=== PATIENT | female | born 1935 | race Caucasian/White ===

== ENCOUNTER → 2016-05-17 | Outpatient (CLI) | payer BC ==
[~2016-05-17] MED LIST: FSM70 PO; LEVO100T48 PO; NOVOLOG INSULIN; OXYC-57 PO; PRD/1 PO
[2016-05-17 13:34] LABS: ESTIMATED AVERAGE GLUCOSE 174 mg/dl; HA1C FLAG Normal (Normal)
[2016-05-17 13:36] LABS: BLOOD UREA NITROGEN 8 mg/dl (7-18); BUN/CREATININE RATIO 9.3 (10-20); CALCIUM 9.5 mg/dl (8.5-10.1); CARBON DIOXIDE 26 mmol/L (21-32); CHLORIDE 104 mmol/L (98-107); CHOLESTEROL 228 mg/dl (0-200); GLUCOSE 168 mg/dl (70-99); POTASSIUM 3.7 mmol/L (3.5-5.1); SODIUM 140 mmol/L (136-145); TRIGLYCERIDES 68 mg/dl (0-150); VERY LOW DENSITY LIPOPROT CALC 14 mg/dl
[2016-05-17 13:48] LABS: CHOLESTEROL/HDL RATIO 2.4; HDL CHOLESTEROL 96 mg/dl; LDL CHOLESTEROL CALCULATED 118 mg/dl
== END | disposition home or self-care (01) ==
LOC: C.LABPVFM 08:06
PROVIDERS: ATTEND Family Medicine
DX: E78.5 Hyperlipidemia, unspecified (principal); E06.3 Autoimmune thyroiditis; H61.21 Impacted cerumen, right ear; E10.9 Type 1 diabetes mellitus without complications

== ENCOUNTER → 2016-12-14 | Outpatient (CLI) | payer BC | END | disposition home or self-care (01) | LOC: C.LABPVFM 16:55 | PROVIDERS: ATTEND Nurse Practitioner Adult Health | DX: E10.9 Type 1 diabetes mellitus without complications (principal); Z79.4 Long term (current) use of insulin ==

== ENCOUNTER → 2017-03-08 | Outpatient (CLI) | payer BC ==
[2017-03-08 12:58] LABS: HEMOGLOBIN A1C 7.8 % (4.5-5.6)
== END | disposition home or self-care (01) ==
LOC: C.LABPVFM 08:40
PROVIDERS: ATTEND Nurse Practitioner Adult Health
DX: E10.9 Type 1 diabetes mellitus without complications (principal); M81.0 Age-related osteoporosis without current pathological fracture; Z79.4 Long term (current) use of insulin

== ENCOUNTER → 2017-06-10 | Outpatient (CLI) | payer BC ==
[2017-06-10 10:40] LABS: CREATININE RANDOM URINE 37.2 mg/dl
[2017-06-10 11:11] LABS: ALBUMIN 3.4 gm/dl (3.4-5.0); ALT/SGPT 18 U/L (12-78); AST/SGOT 20 U/L (15-37); BLOOD UREA NITROGEN 9 mg/dl (7-18); CALCIUM 9.4 mg/dl (8.5-10.1); CARBON DIOXIDE 28 mmol/L (21-32); CHOLESTEROL 182 mg/dl (0-200); CREATININE 0.89 mg/dl (0.60-1.20); GLUCOSE 181 mg/dl (70-99); POTASSIUM 3.8 mmol/L (3.5-5.1); SODIUM 138 mmol/L (136-145)
[2017-06-10 11:16] LABS: ALKALINE PHOSPHATASE 74 U/L (45-117); LDL CHOLESTEROL CALCULATED 84 mg/dl; TOTAL PROTEIN 7.2 gm/dl (6.4-8.2)
== END | disposition home or self-care (01) ==
LOC: C.LAB1850 09:20
PROVIDERS: ATTEND Nurse Practitioner Adult Health
DX: E10.9 Type 1 diabetes mellitus without complications (principal); E78.5 Hyperlipidemia, unspecified; E03.9 Hypothyroidism, unspecified; R80.9 Proteinuria, unspecified

== ENCOUNTER 2023-05-03 03:12 | Observation (INO) ==
--- NOTE | 2023-05-03 03:24 | Emergency Department Note ---
Impression & Plan Substernal chest pain ED Provider Note Name: SOHAIL PEDROZA Age: 87 Sex: Female Arrives Via: Ambulance Informant: Patient, ED Provider: Dwight Samano MD Chief Complaint: Chest pain Impression: As per impressions above Medical Decision Makin-year-old female without significant past medical history of cardiac disease arrives for evaluation of substernal chest pressure on and off for the last few hours gradually worsening. On arrival patient EKG is low voltage but no evidence of ischemia. EMS EKG unremarkable as well. Patient given nitro and aspirin. She states this made it worse. She was given small dose of fentanyl and Zofran with vast improvement. At 1 point she did have some epigastric discomfort but on exam no abdominal tenderness palpation and this resolved relatively quickly. She has no evidence of abnormal pulses and she does not have any pulsations on her abdomen exam. Chest x-ray is unremarkable and laboratory workup is benign. Given waxing waning symptoms and patient's age and risk factors I think cardiac rule out would be indicated. Patient does not have any evidence of dissection at this time. She is not short of breath or tachycardic I do not think PE rule out is necessary either. Hospitalist consulted for further management. Of note patient has been on some prednisone 2 mg for quite some time. She may have some gastritis which was irritated by the aspirin but as she has no further abdominal tenderness palpation I would hold off on imaging and defer management to hospitalist team. Triage/Nursing Notes reviewed by Me Differential: Cardiac ischemia, aortic dissection, pulmonary embolism, pneumothorax, pneumonia, pericarditis, myocarditis, esophageal rupture, GERD, cholecystitis, pancreatitis, musculoskeletal, as well as other pathologies. Vital Signs: reviewed and remarkable for HTN Interventions: Sublingual nitroglycerin, aspirin, fentanyl IV, Zofran IV Labs:ED labs Reviewed by me and remarkable for no significant abnormalities Imagin view chest x-ray as per my interpretation no infiltrate or effusion appreciated. EKG:As per my interpretation. Indication chest pain. Low voltage. Normal sinus rhythm at 63 bpm QTc of 440 no ectopy nor ischemia. No previous EKGs for comparison. Cardiac/Tele Monitoring: Cardiac Monitoring: An Order was placed for continuous cardiac monitoring. The monitor shows a rate of 60 with a normal sinus rhythm. Consults:Dr Frank HALL Hospitalist Plan: Disposition:Hospitalization. Condition: Good History of Present Illness: 87-year-old female arrives for evaluation of chest pain. Patient notes she was lying on her couch this evening about 2 hours ago when she started belting chest pain. Chest pain is pressure-like and tight. Location is central and sternal. No radiation to back, shoulders, neck, abdomen. Notes earlier she was having a fast heart rate but that seems of slow down. She does still have some continued chest pressure. Denies any shortness of breath, back pain, syncope, headache, abdominal pain, epigastric discomfort, nausea, vomiting, leg pain, calf swelling, other concerning signs or symptoms. Patient without history of cardiac disease. She does have a recent history of dealing with issues with low back pain for which she has been on oxycodone, Lyrica. She is recently started to decrease her oxycodone and Lyrica and notes that has caused some discomfort. Patient has a history of polymyalgia rheumatica for which she is on chronic low-dose prednisone. Past Medical History:Polymyalgia rheumatica, diabetes, osteoporosis sciatica, hypothyroidism Home Medications:See Below Allergies:Sulfa and Synthroid Vitals:Blood Pressure: 170/76, Pulse 69, RR 18, T 36.8C, O2 98% on RA Physical Exam: GENERAL: Patient is mildly anxious appearing and in minimal distress. RESPIRATORY: No dyspnea. Clear to auscultation and equal bilaterally. CARDIOVASCULAR: Regular rate and rhythm.No murmur appreciated. GASTROINTESTINAL: Abdomen soft, non-tender, no peritonitis. EXTREMITIES: Normal motion all extremities, no cyanosis, no edema. NEUROLOGIC: Alert and oriented. No focal neurologic deficits appreciated SKIN: No rash, no jaundice, no diaphoresis. PSYCH: Appropriate GCS: 15 ED Course: Times/Reassessments: Following aspirin nitro patient with worsening pain and. She was given fentanyl and complete resolution of pain. On subsequent multiple reevaluations no further discomfort. Soft nontender abdomen and patient looks well. She is agreeable to hospitalization. Dwight Samano MD Past Med/Surg History Medical History Osteoporosis HTN (hypertension), benign Dyslipidemia Vitamin D deficiency History of shingles H/O Cherie thyroiditis DM I (diabetes mellitus, type I) Hypothyroid Polymyalgia rheumatica syndrome Surgical History H/O: hysterectomy History of appendectomy Family History Other Diabetes Denies family history of Ovarian cancer Prostate cancer Myocardial infarction Breast cancer Colorectal cancer Social History Smoking Status: Never smoker Second Hand Exposure: No; Do You Dip or Chew Tobacco: No; Hx Alcohol Use: No Hx Substance Use: No Preferred Language: Slovak Communication Ability: Effective Visual Impairment: No Limitations Hearing Ability: Normal marital status: Current Living Situation: Spouse current occupational status: retired How many Children do You have: 3 Feels Safe at Home: Yes Childhood Exposure to Second-Hand Smoke: No Diet: diabetic and low salt caffeine: No Dental Care, Regularly: No Physical Activity Frequency: Does not Exercise Seatbelt Use: always Sunscreen Use: Yes Allergies Allergies Allergy/AdvReac Type Severity Reaction Status Date / Time Sulfa (Sulfonamide Allergy Verified 04/09/23 09:57 Antibiotics) synthroid Allergy Severe Diarrhea Uncoded 04/09/23 09:57 Home Meds Home Medications Medication Instructions Recorded Confirmed cyanocobalamin (vitamin B-12) 1,000 mcg PO DAILY 12/10/18 04/09/23 1,000 mcg tablet lancets 30 gauge (OneTouch Delica 08/16/21 04/09/23 Lancets) prednisone 1 mg tablet 2 mg PO DAILY 03/14/23 04/09/23 Previous Rx's Medication Instructions Recorded BD Ultra-Fine Manisha Pen Needle 32 #100 ea 11/19/19 gauge x 5/32" (pen needle, diabetic) blood sugar diagnostic (Contour #2 Boxes 10/19/21 Next Test Strips) insulin aspart U-100 100 unit/mL 60 unit (0.6 mL) subcut DAILY #60 08/22/22 (3 mL) subcutaneous pen (Novolog mL FlexPen U-100 Insulin aspart) Novolog U-100 Insulin aspart 100 See Rx Instructions continuous 08/23/22 unit/mL subcutaneous solution subcutaneous infusion DAILY #60 mL (insulin aspart U-100) FreeStyle Latosha 2 Sensor (flash #6 ea 11/28/22 glucose sensor) Levoxyl 100 mcg tablet 100 mcg PO DAILY #90 tabs 11/28/22 (levothyroxine) calcitriol 0.25 mcg capsule 0.25 mcg PO BID #180 caps 04/09/23 insulin aspart U-100 100 unit/mL 60 unit (0.6 mL) subcut DAILY #60 04/11/23 (3 mL) subcutaneous pen (Novolog mL FlexPen U-100 Insulin aspart) pregabalin 75 mg capsule 75 mg PO BID #30 caps 04/22/23 oxycodone 5 mg tablet See Rx Instructions .Route 04/29/23 .COMPLEX PRN pain #60 tabs Results & Data (ED) Vital Signs Vital Signs - 24 hr 05/03/23 03:21 05/03/23 03:22 Temperature 36.8 C Temperature Source Oral Pulse Rate 69 69 Pulse Rhythm Regular Pulse Strength Normal Respiratory Rate 18 Respiratory Effort / Characteristics Non-Labored Spontaneous Respiratory Depth Normal Respiratory Pattern Regular Blood Pressure 170/76 H Blood Pressure Mean 107 Blood Pressure Position Sitting Pulse Oximetry 98 Oxygen Delivery Method Room Air Sepsis Recent Fever Within 48 Hours No Sepsis New/Unexplained Change in Mental Status N/A Sepsis Action Taken by Nursing No Action Required Laboratory Data 05/03/23 03:25 05/03/23 04:19 Lab Results 05/03/23 05/03/23 Range/Units 03:25 04:19 WBC 8.79 (4.8-10.8) K/ul RBC 4.81 (4.20-5.40) M/uL Hgb 13.2 (12.0-16.0) g/dl Hct 40.6 (37.0-47.0) % MCV 84.4 (80.0-100.0) fL MCH 27.4 (25.0-34.0) pg MCHC 32.5 (32.0-36.0) g/dL RDW Std Deviation 45.6 (36.4-46.3) fL RDW Coeff of Dawna 15.0 H (11.5-14.5) % Plt Count 390 (130-400) K/uL MPV 10.3 (9.4-12.4) fL Immature Gran % (Auto) 0.3 % Neut % (Auto) 72.1 % Lymph % (Auto) 19.8 % Eagle % (Auto) 7.2 % Eos % (Auto) 0.0 % Baso % (Auto) 0.6 % Neut # (Auto) 6.34 (1.40-6.50) K/uL Lymph # (Auto) 1.74 (1.20-3.40) K/uL Eagle # (Auto) 0.63 H (0.11-0.59) K/uL Eos # (Auto) 0.00 (0.00-0.50) K/uL Baso # (Auto) 0.05 (0.00-0.20) K/uL Immature Gran # (Auto) 0.03 (0.01-0.20) K/uL Sodium 135 L (136-145) mmol/L Potassium TNP 4.0 Chloride 104 (98-107) mmol/L Carbon Dioxide 23 (21-32) mmol/L Anion Gap 8 (3-11) BUN 9 (6-23) mg/dl Creatinine 0.71 (0.6-1.2) mg/dl Est Cr Clr Drug Dosing 56.1 ml/min Est GFR ( Amer) 89.4 ml/min Est GFR (Non-Af Amer) 77.1 ml/min BUN/Creatinine Ratio 12.7 (10-20) Glucose 232 H (70-99(Fasting)) mg/dl Calcium 9.6 (8.6-10.3) mg/dl Total Bilirubin 0.9 (0.2-1.0) mg/dl Direct Bilirubin TNP AST 19 (13-39) U/L ALT 8 (7-52) U/L Alkaline Phosphatase 59 (34-104) U/L Troponin I High Sens 6.4 (0-14) pg/ml Total Protein 6.4 (6.0-8.3) gm/dl Albumin 3.7 (3.4-5.0) gm/dl Lipase 9 L (11-82) U/L Administered Medications Discontinued Medications Aspirin (Aspirin 81 Mg Chew) 324 mg PO NOW STA Stop: 05/03/23 03:21 Last Admin: 05/03/23 03:26 Dose: 324 mg Documented By: ZACH Fentanyl Citrate (Fentanyl Citrate Pf 100 Mcg/2 Ml Vial) 25 mcg IV NOW STA Stop: 05/03/23 04:04 Last Admin: 05/03/23 04:24 Dose: 25 mcg Documented By: ZACH Nitroglycerin (Nitroglycerin Sl 0.4 Mg/Tab Tab) 0.4 mg SL NOW STA Stop: 05/03/23 03:21 Last Admin: 05/03/23 03:26 Dose: 0.4 mg Documented By: ZACH Ondansetron HCl (Ondansetron Inj 2 Mg/Ml 2 Ml Vial) 4 mg IV NOW STA Stop: 05/03/23 04:04 Last Admin: 05/03/23 04:24 Dose: 4 mg Documented By: ZACH Discharge Plan Visit Data Chief Complaint: Chest Pain ED Provider: Dwight Samano Discharge Problem: Substernal chest pain Forms Stand Alone Forms: [facility] [employer] Prescriptions Prescriptions: No Action (DME) pen needle, diabetic [BD Ultra-Fine Manisha Pen Needle] 32 gauge x 5/32" needle See Rx Instructions .ROUTE .MEDSUPPLY Qty: 100 3RF Rx Instructions: Use in case of pump failure (DME) Contour Next Test Strips Strip See Rx Instructions .ROUTE .MEDSUPPLY Qty: 2 3RF Dose Instruction: As directed Rx Instructions: Test blood sugars 1 times a day insulin aspart U-100 [Novolog FlexPen U-100 Insulin] 100 unit/mL (3 mL) insulin pen 60 unit SQ DAILY Qty: 60 3RF Rx Instructions: in case of pump failure insulin aspart U-100 [Novolog U-100 Insulin aspart] 100 unit/mL solution See Rx Instructions continuous subcutaneous infusion DAILY Qty: 60 3RF Rx Instructions: 60 units continuous subcutaneous infusion daily; (DME) FreeStyle Latosha 2 Sensor Kit See Rx Instructions .Route Qty: 6 3RF Rx Instructions: Change sensor every 14 days levothyroxine [Levoxyl] 100 mcg tablet 100 mcg PO DAILY Qty: 90 3RF Rx Instructions: Levoxyl ONLY - do not substitute any other brand. calcitriol 0.25 mcg capsule 0.25 mcg PO BID Qty: 180 3RF insulin aspart U-100 [Novolog FlexPen U-100 Insulin] 100 unit/mL (3 mL) insulin pen 60 unit subcut DAILY MDD 60 units Qty: 60 3RF pregabalin 75 mg capsule 75 mg PO BID Qty: 30 0RF oxycodone 5 mg tablet See Rx Instructions .ROUTE .COMPLEX PRN (Reason: pain) Qty: 60 0RF Rx Instructions: 1/2 to 1 tablet every 8 hours as needed for pain. Monitor for drowsiness. (DME) lancets [Capriuch Deldano Lancets] 30 gauge misc See Rx Instructions .ROUTE .MEDSUPPLY Rx Instructions: Test 1 times daily prednisone 1 mg tablet 2 mg PO DAILY cyanocobalamin (vitamin B-12) 1,000 mcg tablet 1,000 mcg PO DAILY Referrals Referrals: Eli Prasad MD [Primary Care Provider] -
[2023-05-03] MEDS: NITROGLYCERIN SL 0.4 MG/TAB TAB SL STA (03:26)
[2023-05-03] MEDS: ASPIRIN 81 MG CHEW PO STA (03:26)
[2023-05-03 03:44] LABS: Basophils # (auto) 0.05 K/uL (0.00-0.20); Basophils % (auto) 0.6 %; Hematocrit (blood only) 40.6 % (37.0-47.0); Hemoglobin 13.2 g/dl (12.0-16.0); Immature Granulocytes # (auto) 0.03 K/uL (0.01-0.20); Immature Granulocytes % (auto) 0.3 %; Lymphocytes # (auto) 1.74 K/uL (1.20-3.40); Lymphocytes % (auto) 19.8 %; Mean Corpuscular Hemoglobin 27.4 pg (25.0-34.0); Mean Corpuscular Hgb Conc 32.5 g/dL (32.0-36.0); Mean Corpuscular Volume 84.4 fL (80.0-100.0); Mean Platelet Volume 10.3 fL (9.4-12.4); Monocytes # (auto) 0.63 K/uL (0.11-0.59); Monocytes % (auto) 7.2 %; Neutrophils # (auto) 6.34 K/uL (1.40-6.50); Neutrophils % (auto) 72.1 %; Platelet Count 390 K/uL (130-400); RDW Standard Deviation 45.6 fL (36.4-46.3); Red Blood Count 4.81 M/uL (4.20-5.40); White Blood Count 8.79 K/ul (4.8-10.8)
[2023-05-03 04:13] LABS: Anion Gap 8 (3-11); BUN Creatinine Ratio 12.7 (10-20); Blood Urea Nitrogen 9 mg/dl (6-23); Calcium 9.6 mg/dl (8.6-10.3); Carbon Dioxide 23 mmol/L (21-32); Chloride 104 mmol/L (98-107); Creatinine Clr Calc Pharmacy 56.1 ml/min; Est GFR (African American) 89.4 ml/min; Est GFR (Non-African American) 77.1 ml/min; Glucose 232 mg/dl (70-99(Fasting)); Sodium 135 mmol/L (136-145)
[2023-05-03] MEDS: ONDANSETRON INJ 2 MG/ML 2 ML VIAL IV STA (04:24)
[2023-05-03] MEDS: fentaNYL citrate PF 100 MCG/2 ML VIAL IV STA (04:24)
[2023-05-03 04:26] LABS: Troponin I High Sensitivity 6.4 pg/ml (0-14)
[2023-05-03 05:01] LABS: Alanine Aminotransferase 8 U/L (7-52); Albumin Level 3.7 gm/dl (3.4-5.0); Alkaline Phosphatase 59 U/L (34-104); Aspartate Aminotransferase 19 U/L (13-39); Bilirubin,Total 0.9 mg/dl (0.2-1.0); Lipase 9 U/L (11-82); Total Protein 6.4 gm/dl (6.0-8.3)
--- NOTE | 2023-05-03 05:39 | History & Physical Report ---
Date of Service May 03, 2023 Assessment & Plan (1) Substernal chest pain: Plan: -Patient with substernal chest pain that started approximately 3 to 4 hours prior to coming to the hospital. -Troponin negative, will repeat troponin at time of admission. -EKG without any acute changes. -Will order lipid panel. -Ordered TTE. -N.p.o. for now, if troponin negative can start diet. (2) Epigastric pain: Plan: -Lipase negative. Symptoms got slightly better with Zofran and fentanyl. -Will give GI cocktail at time of admission. -Will put on MiraLAX as needed. (3) Low back pain with sciatica: Plan: -Patient with known low back pain with sciatica on gabapentin. -Was recently in the ED and supplied oxycodone. -Will stop oxycodone as she has been having constipation since starting which most likely contributed to her constipation and epigastric pain. (4) Diabetes: Plan: -Patient is a type I diabetic and is currently wearing a pump. -Will add on hemoglobin A1c. (5) HTN (hypertension), benign: Plan: -Continue on home medications. (6) Polymyalgia rheumatica syndrome: Plan: -Continue on 1 mg steroids daily. (7) Hypothyroid: Plan: -Continue home Synthroid. History of Present Illness Chief Complaint: Chest pain rule out Primary Care Provider: Eli Prasad MD Patient is a 87-year-old female who presents to the hospital with chest pain, epigastric pain, and constipation. Patient started having chest pain overnight. Patient was having chest pain for 3 to 4 hours prior to coming into the hospital. She was not sleeping at that time but was resting. States that it feels like someone is sitting on her chest. She has been also having epigastric pain starting since yesterday. She also states that she has been having constipation and has not had a bowel movement for 2 days. She was recently started on oxycodone for back pain after discharge from the ED on 04/02. Patient states that she is also having numbness and tingling in her legs but this is nothing new and she follows with orthopedics. She is currently waiting to have an MRI. Of note patient is also a type I diabetic and has an insulin pump on. She denies any fevers, chills, or cough. In the ED: Troponin negative, lipase negative, CBC and CMP benign. Nitro was given which did not help. Symptoms improved slightly with Zofran and fentanyl though they came back. Allergies Allergy/AdvReac Type Severity Reaction Status Date / Time Sulfa (Sulfonamide Allergy Unknown Verified 05/03/23 10:47 Antibiotics) levothyroxine sodium AdvReac Severe Diarrhea Verified 05/03/23 10:47 [From Synthroid] (worst ever) but takes Levoxyl Home Medications Medication Instructions Recorded Confirmed Type cyanocobalamin (vitamin B-12) 1,000 mcg PO DAILY 12/10/18 05/03/23 History 1,000 mcg tablet BD Ultra-Fine Manisha Pen Needle 32 #100 ea 11/19/19 04/09/23 Rx gauge x 5/32" (pen needle, diabetic) lancets 30 gauge (OneTouch Delica 08/16/21 04/09/23 History Lancets) blood sugar diagnostic (Contour #2 Boxes 10/19/21 04/09/23 Rx Next Test Strips) insulin aspart U-100 100 unit/mL 60 unit (0.6 mL) subcut DAILY #60 08/22/22 05/03/23 Rx (3 mL) subcutaneous pen (Novolog mL FlexPen U-100 Insulin aspart) Novolog U-100 Insulin aspart 100 See Rx Instructions continuous 08/23/22 05/03/23 Rx unit/mL subcutaneous solution subcutaneous infusion DAILY #60 mL (insulin aspart U-100) FreeStyle Latosha 2 Sensor (flash #6 ea 11/28/22 04/09/23 Rx glucose sensor) Levoxyl 100 mcg tablet 100 mcg PO DAILY #90 tabs 11/28/22 05/03/23 Rx (levothyroxine) prednisone 1 mg tablet 1 mg PO DAILY 03/14/23 05/03/23 History calcitriol 0.25 mcg capsule 0.25 mcg PO BID #180 caps 04/09/23 05/03/23 Rx pregabalin 75 mg capsule 75 mg PO BID #30 caps 04/22/23 05/03/23 Rx oxycodone 5 mg tablet 2.5 - 5 mg PO Q8H PRN Pain 05/03/23 05/03/23 History Past Med/Surg History Medical History Osteoporosis HTN (hypertension), benign Dyslipidemia Vitamin D deficiency History of shingles H/O Cherie thyroiditis DM I (diabetes mellitus, type I) Hypothyroid Polymyalgia rheumatica syndrome Surgical History H/O: hysterectomy History of appendectomy Family History Other Diabetes Denies family history of Ovarian cancer Prostate cancer Myocardial infarction Breast cancer Colorectal cancer Social History Smoking Status: Never smoker Second Hand Exposure: No; Do You Dip or Chew Tobacco: No; Hx Alcohol Use: No Hx Substance Use: No Preferred Language: Thai Communication Ability: Effective Visual Impairment: No Limitations Hearing Ability: Normal [employer] Technician Required: No Beliefs That Will Affect Care: None marital status: Current Living Situation: Spouse current occupational status: retired How many Children do You have: 3 Feels Safe at Home: Yes Safety Concerns: Feels Safe At This Time Childhood Exposure to Second-Hand Smoke: No Diet: diabetic and low salt caffeine: No Dental Care, Regularly: No Physical Activity Frequency: Does not Exercise Seatbelt Use: always Sunscreen Use: Yes Assistive Devices: Walker Review of Systems Review of Systems: All systems reviewed & are unremarkable except as noted in Subjective Physical Exam Physical Exam: Constitutional: well-appearing, no acute distress HEENT: NCAT, no conjunctival injection CV: regular rhythm, no murmur appreciated, extremities well-perfused, no LE edema Resp: CTABL, no wheezes/rales/rhonchi appreciated, no increased work of breathing GI: soft, nondistended, epigastric tenderness, BS normoactive MSK: Slight chest wall tenderness Skin: warm, dry, no rash appreciated Neuro: alert, oriented, no focal neurologic deficit appreciated Results & Data Results & Data Vital Signs (Past 12 Hours) Vital Signs Temp Pulse Resp BP Pulse Ox O2 Del Method 05/03/23 03:22 69 05/03/23 03:21 36.8 C 69 18 170/76 H 98 Room Air Supervising Physician Co-Signing Physician Notes Attending addendum: I have physically seen this patient, have supervised the medical residents activities, and agree with the H&P unless as otherwise noted. Assessment and Plan: Substernal chest pain/hypertension- The patient will be admitted to telemetry for serial cardiac enzymes, serial EKG's, cardiac rhythm monitoring and a 2-D echocardiogram with Dopplers. Initial troponin 6.4 with follow-up pending 6 From the ED received the following: Aspirin 324 mg, nitroglycerin 0.4 mg, Zofran 4 mg IV and fentanyl 25 mcg IV Consult cardiology Epigastric pain- Trial GI cocktail Stool retention noted MiraLAX 17 g p.o. daily as needed Pantoprazole 40 mg p.o. daily Diabetes mellitus- Presently using insulin pump Consult pharmacy glycemic management Polymyalgia rheumatica- Continue current dosing of prednisone, would have low threshold for stress dosing Resident Activity Tracking Resident Involvement: Resident Care Provided Care Provided: Adult Hospital Medicine (4) Diabetes Diabetes mellitus complication status: without complication Diabetes mellitus type: type 1 Qualified Code(s): E10.9 - Type 1 diabetes mellitus without complications (7) Hypothyroid Hypothyroidism type: acquired Qualified Code(s): E03.9 - Hypothyroidism, unspecified
[2023-05-03] MEDS: ALUMINUM/MAGNESIUM SUSP 30 ML UDC PO STA (06:13)
[2023-05-03] MEDS ORDERED: NITROGLYCERIN SL 0.4 MG/TAB TAB SL PRN (06:23)
[2023-05-03] MEDS ORDERED: ONDANSETRON INJ 2 MG/ML 2 ML VIAL IV PRN (06:23)
[2023-05-03 06:29] LABS: Troponin I High Sensitivity 7.7 pg/ml (0-14)
[2023-05-03 06:53] LABS: Chol HDL Ratio 2.5 (0-5)
--- NOTE | 2023-05-03 06:54 | XRay Report ---
XR chest 1V portable CLINICAL HISTORY: Atypical chest pain. COMPARISON STUDY: No previous studies for comparison. FINDINGS: Lung volumes are normal. There is no pneumothorax or pleural effusion. Patchy bibasilar opa cities are present. No evidence for pulmonary edema. Patient is mildly rotated. Cardiomediastinal radha houette is unremarkable. IMPRESSION: Patchy bibasilar opacities which may reflect pneumonia. Radiographic follow-up to ensure resolution is recommended. Findings will be called/faxed to the ordering provider at time of dictati on. ACT 112: Negative or not required by law. Electronically signed by: Manuel Joel M.D. 05/03/2023 6:52 AM
[2023-05-03 07:13] LABS: Estimated Average Glucose 169 mg/dl; Hemoglobin A1C 7.5 % (4.5-5.6)
[2023-05-03] MEDS: LEVOTHYROXINE SODIUM 100 MCG TABLET PO SCH (07:23)
--- NOTE | 2023-05-03 08:00 | Electrocardiogram Report ---
Test Reason : Blood Pressure : / mmHG Vent. Rate : 063 BPM Atrial Rate : 063 BPM P-R Int : 174 ms QRS Dur : 082 ms QT Int : 430 ms P-R-T Axes : 036 -09 048 degrees QTc Int : 440 ms Normal sinus rhythm Low voltage QRS Abnormal ECG No previous ECGs available Confirmed by Hola Montano ([id number]) on 05/03/2023 8:00:34 AM Referred By: REFERRED SELF Confirmed By:Felix Montano
[2023-05-03] MEDS: predniSONE 1 MG TAB PO SCH (08:39)
[2023-05-03] MEDS: MAGNESIUM HYDROXIDE SUSP 30 ML UDC PO PRN (08:39)
[2023-05-03] MEDS: PREGABALIN 75 MG CAP PO SCH (08:41)
[2023-05-03 09:51] LABS: Adenovirus PCR Not Detected (NotDetected); Bordetella parapertussis PCR Not Detected (NotDetected); Bordetella pertussis PCR Not Detected (NotDetected); Chlamydia pneumoniae PCR Not Detected (NotDetected); Coronavirus 229E PCR Not Detected (NotDetected); Coronavirus CoV-2 (COVID19)PCR Not Detected (NotDetected); Coronavirus HKU1 PCR Not Detected (NotDetected); Coronavirus NL63 PCR Not Detected (NotDetected); Coronavirus OC43PCR Not Detected (NotDetected); Human Metapneumovirus PCR Not Detected (NotDetected); Influenza A PCR Not Detected (NotDetected); Influenza B PCR Not Detected (NotDetected); Mycoplasma pneumoniae PCR Not Detected (NotDetected); Parainfluenza Virus 1 PCR Not Detected (NotDetected); Parainfluenza Virus 2 PCR Not Detected (NotDetected); Parainfluenza Virus 3 PCR Not Detected (NotDetected); Parainfluenza Virus 4 PCR Not Detected (NotDetected); Respiratory Syncytial VirusPCR Not Detected (NotDetected); Rhinovirus/Enterovirus PCR Not Detected (NotDetected)
[2023-05-03] MEDS ORDERED: PHARMACY GLYCEMIC MGMT CONSULT PRN (11:43)
[2023-05-03] MEDS ORDERED: INSULIN ASPART 100 UNITS/ML VIAL SC PRN (12:15)
[2023-05-03] MEDS ORDERED: GLUCAGON FOR INJ 1 MG VIAL IM PRN (12:15)
[2023-05-03] MEDS ORDERED: CARBOHYDRATES FOR HYPOGLYCEMIA PO PRN (12:15)
[2023-05-03] MEDS ORDERED: GLUCOSE 10 TAB/TUBE PO PRN (12:15)
[2023-05-03] MEDS ORDERED: GLUCOSE 40% GEL 15 GM TUBE PO PRN (12:15)
[2023-05-03] MEDS ORDERED: Continuous Glucose Monitor SCH (12:15)
[2023-05-03] MEDS ORDERED: DEXTROSE 50% 50 ML SYRINGE IV PRN (12:15)
[2023-05-03] MEDS: POLYETHYLENE (MIRALAX) 17 GM PACK PO PRN (12:21)
[2023-05-03] MEDS: INSULIN, Rapid-Acting PUMP SCH (13:48)
--- NOTE | 2023-05-03 14:14 | XCELERA ---
[id number]
--- NOTE | 2023-05-03 20:53 | Billing Data ---
Date of Service May 03, 2023 Coding Level of Care Code 79887 INT INP/OBS CARE
[2023-05-04 07:49] LABS: Basophils # (auto) 0.06 K/uL (0.00-0.20); Basophils % (auto) 0.7 %; Hemoglobin 12.6 g/dl (12.0-16.0); Immature Granulocytes # (auto) 0.02 K/uL (0.01-0.20); Immature Granulocytes % (auto) 0.2 %; Lymphocytes # (auto) 2.43 K/uL (1.20-3.40); Lymphocytes % (auto) 27.3 %; Mean Corpuscular Hemoglobin 27.1 pg (25.0-34.0); Mean Corpuscular Hgb Conc 32.3 g/dL (32.0-36.0); Mean Corpuscular Volume 83.9 fL (80.0-100.0); Mean Platelet Volume 10.6 fL (9.4-12.4); Monocytes # (auto) 0.83 K/uL (0.11-0.59); Monocytes % (auto) 9.3 %; Neutrophils # (auto) 5.56 K/uL (1.40-6.50); Neutrophils % (auto) 62.5 %; Platelet Count 361 K/uL (130-400); RDW Coefficient of Variation 15.3 % (11.5-14.5); RDW Standard Deviation 46.6 fL (36.4-46.3); Red Blood Count 4.65 M/uL (4.20-5.40)
[2023-05-04 08:21] LABS: Troponin I High Sensitivity 16.4 pg/ml (0-14)
[2023-05-04 08:32] LABS: Albumin Globulin Ratio 1.5 (0.9-2); Albumin Level 3.8 gm/dl (3.4-5.0); BUN Creatinine Ratio 16.2 (10-20); Bilirubin,Total 1.1 mg/dl (0.2-1.0); C Reactive Protein 1.99 mg/dl (0-0.5); Calcium 9.3 mg/dl (8.6-10.3); Creatinine Clr Calc Pharmacy 52.5 ml/min; Est GFR (Non-African American) 73.4 ml/min; Globulin 2.6 gm/dl (2.5-4.0); Potassium 3.9 mmol/L (3.5-5.1); Total Protein 6.4 gm/dl (6.0-8.3)
[2023-05-04] MEDS: POLYETHYLENE (MIRALAX) 17 GM PACK PO SCH (10:25)
[2023-05-04] MEDS: DOCUSATE SODIUM/SENNA 50/8.6MG TAB PO SCH (10:26)
--- NOTE | 2023-05-04 10:28 | XRay Report ---
KUB CLINICAL HISTORY: Constipation. FINDINGS: 2 AP, portable, supine abdominal radiographs are correlated with lumbar spine radiographs d ated 04/17/2023. There is a nonobstructed abdominal bowel gas pattern. There is mild colonic fecal rete ntion. No evidence of intraperitoneal free air is seen on these supine images. There are no abnormal abdominal calcifications. The skeletal structures are osteopenic and appear intact. There is moderate to advanced lumbosacral spondylosis as well as mild scoliosis. IMPRESSION: No acute abnormality is identified. Electronically signed by: Henok Harding M.D. 05/04/2023 10:26 AM
--- NOTE | 2023-05-07 10:27 | Discharge Summary ---
Date of Service May 04, 2023 Admission HPI Per Admitting Provider Patient is a 87-year-old female who presents to the hospital with chest pain, epigastric pain, and constipation. Patient started having chest pain overnight. Patient was having chest pain for 3 to 4 hours prior to coming into the hospital. She was not sleeping at that time but was resting. States that it feels like someone is sitting on her chest. She has been also having epigastric pain starting since yesterday. She also states that she has been having constipation and has not had a bowel movement for 2 days. She was recently started on oxycodone for back pain after discharge from the ED on 04/02. Patient states that she is also having numbness and tingling in her legs but this is nothing new and she follows with orthopedics. She is currently waiting to have an MRI. Of note patient is also a type I diabetic and has an insulin pump on. She denies any fevers, chills, or cough. In the ED: Troponin negative, lipase negative, CBC and CMP benign. Nitro was given which did not help. Symptoms improved slightly with Zofran and fentanyl though they came back. Principal Diagnosis chest pain Discharge Exam Constitutional: well-appearing, no acute distress HEENT: NCAT, no conjunctival injection CV: regular rhythm, no murmur appreciated, extremities well-perfused, no LE edema Resp: CTABL, no wheezes/rales/rhonchi appreciated, no increased work of breathing GI: soft, nondistended, epigastric tenderness, BS normoactive MSK: Slight chest wall tenderness Skin: warm, dry, no rash appreciated Neuro: alert, oriented, no focal neurologic deficit appreciated Discharge Data Allergies Allergy/AdvReac Type Severity Reaction Status Date / Time Sulfa (Sulfonamide Allergy Unknown Verified 05/06/23 14:29 Antibiotics) levothyroxine sodium AdvReac Severe Diarrhea Verified 05/06/23 14:29 [From Synthroid] (worst ever) but takes Levoxyl Consultations 05/03/23 05:27 ED Decision to Admit Stat Hospital Course (1) Substernal chest pain: -Patient with substernal chest pain that started approximately 6-8 hours prior to coming to the hospital. -troponin peaked at 16 now downtrending. doubt patient will need a stress test, but will ultimately defer to PCP Patient back to baseline and asymptomatic after having BM (2) Epigastric pain: -Lipase negative. Symptoms got slightly better with Zofran and fentanyl. -Will give GI cocktail at time of admission. -Will put on MiraLAX as needed. Place on miralax and senna/ docusate at discharge. (3) Low back pain with sciatica: -Patient with known low back pain with sciatica on gabapentin. -Was recently in the ED and supplied oxycodone. -Will stop oxycodone as she has been having constipation since starting which most likely contributed to her constipation and epigastric pain. (4) Diabetes: -Patient is a type I diabetic and is currently wearing a pump. -Will add on hemoglobin A1c. (5) HTN (hypertension), benign: -Continue on home medications. (6) Polymyalgia rheumatica syndrome: -Continue on 1 mg steroids daily. (7) Hypothyroid: -Continue home Synthroid. Total Time Total Time Spent Total Time Spent (In Minutes): 32 Discharge Plan Discharge Items Patient Disposition: Home - Self-Care Reason For Visit: CHEST PAIN R/O Discharge Diagnosis: chest pain Condition on Discharge: Fair Activity: Resume your previous activity Non-emergency contact: Primary Care Provider Call non-emergency contact if: you have any medication questions Follow-up/Referrals: Eli Prasad MD [Primary Care Provider] - 05/07/23 11:30 am Diet: Carb Count or DM1 Addtl Attending Provider Instructions: I recommend a close followup with your PCP in 1-2weeks. You were evaluated for chest pain but thankfully, your cardiac markers were never truly elevated. I spoke with the rotary pump operator education associate and he agreed no further intervention needed. I will defer to your PCP if an outpatient stress test is warranted. In regards to your constipation, this is likely due to your pain medicine. I will prescribe a regimen of senna/colace daily. And will also prescribe miralax as needed. If your stools get too watery, cu back on the miralax. If it remains too loose after cutting the miralax, then also cut back on the senna and colace to every other day. It was a pleasure. Best wishes. Chase Scanlon MD Pending Studies at Discharge: No Stand-Alone Forms: My [facility], Smoking Cessation Medications and DC Order Prescriptions: New polyethylene glycol 3350 [Miralax] 17 gram/dose powder 17 g PO BID PRN (Reason: constipation) Qty: 119 0RF sennosides-docusate sodium [Senokot-S] 8.6-50 mg tablet 1 tab-cap PO DAILY Qty: 30 0RF Continued (DME) pen needle, diabetic [BD Ultra-Fine Manisha Pen Needle] 32 gauge x 5/32" needle See Rx Instructions .ROUTE .MEDSUPPLY Qty: 100 3RF Rx Instructions: Use in case of pump failure (DME) Contour Next Test Strips Strip See Rx Instructions .ROUTE .MEDSUPPLY Qty: 2 3RF Dose Instruction: As directed Rx Instructions: Test blood sugars 1 times a day insulin aspart U-100 [Novolog FlexPen U-100 Insulin] 100 unit/mL (3 mL) insulin pen 60 unit SQ DAILY Qty: 60 3RF Rx Instructions: in case of pump failure insulin aspart U-100 [Novolog U-100 Insulin aspart] 100 unit/mL solution See Rx Instructions continuous subcutaneous infusion DAILY Qty: 60 3RF Rx Instructions: 60 units continuous subcutaneous infusion daily; (DME) FreeStyle Latosha 2 Sensor Kit See Rx Instructions .Route Qty: 6 3RF Rx Instructions: Change sensor every 14 days levothyroxine [Levoxyl] 100 mcg tablet 100 mcg PO DAILY Qty: 90 3RF Rx Instructions: Levoxyl ONLY - do not substitute any other brand. calcitriol 0.25 mcg capsule 0.25 mcg PO BID Qty: 180 3RF (DME) lancets [OneTouch Delica Lancets] 30 gauge misc See Rx Instructions .ROUTE .MEDSUPPLY Rx Instructions: Test 1 times daily prednisone 1 mg tablet 1 mg PO DAILY cyanocobalamin (vitamin B-12) 1,000 mcg tablet 1,000 mcg PO DAILY oxycodone 5 mg tablet 2.5 - 5 mg PO Q8H PRN (Reason: Pain) No Action duloxetine 30 mg capsule,delayed release(DR/EC) 30 mg PO DAILY Qty: 30 2RF prednisone 10 mg tablet See Rx Instructions PO DAILY Qty: 30 0RF Rx Instructions: Take 4 tabs daily x 3 days, then take 3 tabs daily x 3 days, then take 2 tabs daily x 3 days, then take 1 tab daily x 3 days prednisone 5 mg tablet 5 mg PO DAILY 3 Days Qty: 3 0RF Rx Instructions: Start after taking 10mg daily for 3 days. Take 5mg daily for 3 days. prednisone 2.5 mg tablet 2.5 mg PO DAILY 3 Days Qty: 3 0RF Rx Instructions: Start after daily 5 mg daily for 3 days Take 2.5mg daily for 3 days. Then resume 1mg daily tablet. Discharge Orders: Discharge Order (Routine); Ordered 05/04/23 Ordered By: Chase Scanlon Admission Data Admit Date/Time: 05/03/23 05:49 Attending Provider: Chase Scanlon Admit Provider: Henok Mauricio Primary Care Provider: Eli Prasad Other Providers: Rigoberto Marie Other Interventions: Discharge Summary Assessment (RN) Last Done: 05/04/23 14:56 Coding Level of Care Code 18869 INP/OBS DISCH >30 MIN Diagnoses Substernal chest pain R07.2 Epigastric pain R10.13 Low back pain with sciatica M54.40 Type 1 diabetes mellitus without complication E10.9 Diabetes mellitus type: type 1 Diabetes mellitus complication status: without complication HTN (hypertension), benign I10 Polymyalgia rheumatica syndrome M35.3 Acquired hypothyroidism E03.9 Hypothyroidism type: acquired
== END 2023-05-04 15:31 | disposition home or self-care (01) ==
LOC: ED 03:12 → EDINP 03:12 → SUATTDRO 05:49 → 2S 19:31